=== PATIENT | female | born 1980 ===

== ENCOUNTER 2024-04-19 09:00 | Outpatient (RCR) | payer OTHER, SELFPAY ==
--- NOTE | 2024-01-22 11:58 | OTOPEVAL1 ---
Assessment and note entered by Mark Kuhn, OTR/Rebecca, CHT Evaluation Information Assessment Status Evaluation Diagnosis Bilateral carpal tunnel syndrome ICD-10 Condition Codes (OT) M79.641,M25.531,M25.521 Subjective Information Patient is right handed. Reports symptoms are worse on the right vs. the left. 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 She reports pain with cleaning tasks. She takes her brace off to clean the bathrooms and this is the most painful task. She would like to focus treatment on the right UE at this time due to her level of pain on this side. She presents in a prefabricated wrist immobilizer that she wears during the day. She states she cannot wear it at night because it's too painful. Reported Pain Level Pain Score 5/10 (R) wrist/hand, gets up to 10/10 at times 0/10 (L) wrist/hand Assessment OT Clinical Summary Patient referred to OT with dx of carpal tunnel syndrome. She presents with significant amounts of pain and reduced ROM/flexibility in the wrist and thumb due to pain, stiffness, and weakness. Issued ROM HEP today and began soft tissue work to improve flexibility. She was unable to tolerate nerve glides due to the level of pain and nerve irritation. Continued skilled OT indicated to progress HEP as tolerated, for therapeutic exercise, use of modalities, and manual therapy to facilitate optimal functional use of her right, dominant UE. Plan of Care Interventions Therapeutic Exercise,Manual Therapy,Therapeutic Activities,Hot Pack/Cold Pack,Check Out for Orthotic/Pr,Ultrasound,Paraffin OT Services Indicated Yes Treatment Frequency and 2x/week for 8 visits Duration These treatments will address the objective and functional deficits as defined above. The patient will be advanced safely and appropriately in order for the patient to progress towards his/her prior level of function. Additional exercises will be introduced and as well as a comprehensive home exercise program upon discharge, if needed, ?to ensure carryover of functional gains achieved in the clinic. This treatment plan has been reviewed and agreement upon by the patient.
--- NOTE | 2024-01-22 11:58 | OPREHPOC ---
Outpatient Therapy Plan of Care This is a Multidisciplinary Plan of Care that may contain components documented by all disciplines (PT, OT, and ST.) OT Problem 1 OT Problem #1 Knowledge Deficit OT Goal 1 Goal 1. Patient to be independent with instructed materials. Target Visit 8 OT Problem 2 OT Problem #2 Pain OT Goal 1 Goal 1. Patient to report reduced pain with ROM of the right UE, reporting 3/10 or less with wrist and thumb ROM. Target Visit 8 OT Problem 3 OT Problem #3 Impaired Strength OT Goal 1 Goal 1. Patient to be able to progress to right forearm and wrist strengthening with 2 lb. free weight without pain. 2. Patient to be able to progress to right milled lumber grader/ pinch strengthening with whelan putty without pain. Target Visit 8
--- NOTE | 2024-03-01 08:35 | PCOTNOTE ---
Patient did not show up for scheduled appointment this date. Called patient, who speaks [place], and was unable to understand her reason for missing the appointment. 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 We were able to reschedule the appointment to next Monday.
--- NOTE | 2024-03-08 14:14 | OTOPPROG ---
Assessment and note entered by Mark Kuhn, CONCEPCIÓN/Rebecca, CHT OT Progress Update 03/08/24 Diagnosis Bilateral carpal tunnel syndrome ICD-10 Condition Codes (OT) M79.641,M25.531,M25.521 Subjective Information Patient reports experiencing progress in the right hand since starting therapy. She reports her pain and tingling have reduced. She is no longer having constant tingling, she has some days of no tingling throughout the day. She states she wakes up in the morning with tingling and this subsides when she gets moving. She has 2 weeks off work right now so she has been trying to rest. She wears a wrist brace on the right when she sleeps. she reports after a therapy day she has relief for 2 days, reporting no tingling or pain. Assessment OT Clinical Summary Patient referred to OT with dx of carpal tunnel syndrome. She has participated in 7 OT sessions with the goals of reducing pain and improving functional use of the right UE. She is making progress with reduced pain levels, reduced paresthesia, and improved flexibility. At the start of care she was unable to tolerate median nerve glides and she has progressed to being able to do 10 reps for HEP. She is tolerating more aggressive stretching and some cold storage worker strengthening also. She continues to experience pain and night paresthesia, however. She continues to have functional limitations with right UE use due to the pain. Continued skilled OT indicated indicated to progress HEP as tolerated, for therapeutic exercise, use of modalities, and manual therapy to facilitate optimal functional use of her right, dominant UE. Plan of Care Interventions Therapeutic Exercise,Manual Therapy,Therapeutic Activities,Hot Pack/Cold Pack,Check Out for Orthotic/Pr,Ultrasound,Paraffin OT Services Indicated Yes Treatment Frequency and 2x/week for 8 visits Duration These treatments will address the objective and functional deficits as defined above. The patient will be advanced safely and appropriately in order for the patient to progress towards his/her prior level of function. Additional exercises will be introduced and as well as a comprehensive home exercise program upon discharge, if needed, ?to ensure carryover of functional gains achieved in the clinic. This treatment plan has been reviewed and agreement upon by the patient.
--- NOTE | 2024-03-08 14:14 | OPREHPOC ---
Outpatient Therapy Plan of Care This is a Multidisciplinary Plan of Care that may contain components documented by all disciplines (PT, OT, and ST.) OT Problem 1 OT Problem #1 Knowledge Deficit OT Goal 1 Goal / Goal Update 1. Patient to be independent with instructed materials. ---OT POC UPDATE 03/08/24--- 1. Met, continue as HEP is progressed Target Visit 16 OT Problem 2 OT Problem #2 Pain OT Goal 1 Goal / Goal Update 1. Patient to report reduced pain with ROM of the right UE, reporting 3/10 or less with wrist and thumb ROM. ---OT POC UPDATE 03/08/24--- 1. Progressed, but not met, continue pain goal Target Visit 16 OT Problem 3 OT Problem #3 Impaired Strength OT Goal 1 Goal / Goal Update 1. Patient to be able to progress to right forearm and wrist strengthening with 2 lb. free weight without pain. 2. Patient to be able to progress to right insect control inspector/ pinch strengthening with whelan putty without pain. ---OT POC UPDATE 03/08/24--- 1. Progressing, not met 2. Progressing, not met Target Visit 16
--- NOTE | 2024-04-02 11:56 | OTOPPROG ---
Assessment and note entered by Mark Kuhn, CONCEPCIÓN/Rebecca, CHT Evaluation Information Assessment Status Progress Diagnosis Bilateral carpal tunnel syndrome ICD-10 Condition Codes (OT) M79.641,M25.531,M25.521 Subjective Information Patient reports her right hand is doing better. She is experiencing no pain and no tingling at rest, has increased pain with hand use, especially with work tasks. She reports she wakes with tingling in the right hand in the middle of the night about 1-2 times a week. She reports the majority of her pain is now proximally at the shoulder and upper traps. ROM of the wrist has returned to normal limits. She is no longer having 8/10 pain with wrist ROM. With active wrist extension she experiences 1/10 pain. She continues to have (+) Phalen's. Labor Economist and pinch strengths are below functional limits: (R) road manager 19 lbs. (R) lateral pinch 0 lbs. (R) palmar pinch 0 lbs. (L) road manager 21 lbs. (L) lateral pinch 4 lbs. (L) palmar pinch 0 lbs. Assessment OT Clinical Summary Patient referred to OT with dx of carpal tunnel syndrome. She has participated in 12 OT sessions with the goals of reducing pain and improving functional use of the right UE. She is making progress with reduced pain levels, reduced paresthesia, improved flexibility, and improved activity tolerance. Last reassessment she was unable to complete wrist extension and thumb serial opposition through normal limits due to pain. She is able to move through full ROM with lower amounts of pain, she is experiencing reduced paresthesia during the day, and is functioning with lower levels of pain. She continues to have a positive Phalen's test (positive within 10 seconds). She continues to have intermittent night symptoms. Continued skilled OT is recommended for continued use of modalities, manual therapy, and progressive therapeutic exercise to facilitate optimal functional use of her right, dominant UE. Plan of Care Interventions Therapeutic Exercise,Manual Therapy,Therapeutic Activities,Hot Pack/Cold Pack,Check Out for Orthotic/Pr,Ultrasound
--- NOTE | 2024-04-02 11:57 | OPREHPOC ---
Outpatient Therapy Plan of Care This is a Multidisciplinary Plan of Care that may contain components documented by all disciplines (PT, OT, and ST.) OT Problem 1 OT Problem #1 Knowledge Deficit OT Goal 1 Goal / Goal Update 1. Patient to be independent with instructed materials. ---OT POC UPDATE 03/08/24--- 1. Met, continue as HEP is progressed ---OT POC UPDATE 04/02/24--- 1. Met, continue as HEP is progressed Target Visit 20 OT Problem 2 OT Problem #2 Pain OT Goal 1 Goal / Goal Update 1. Patient to report reduced pain with ROM of the right UE, reporting 3/10 or less with wrist and thumb ROM. ---OT POC UPDATE 03/08/24--- 1. Progressed, but not met, continue pain goal ---OT POC UPDATE 04/02/24--- 1. Met. Upgrade goal to: Patient to report no longer experiencing pain with wrist and thumb ROM. Target Visit 20 OT Problem 3 OT Problem #3 Impaired Strength OT Goal 1 Goal / Goal Update 1. Patient to be able to progress to right forearm and wrist strengthening with 2 lb. free weight without pain. 2. Patient to be able to progress to right sweat band separator/ pinch strengthening with whelan putty without pain. ---OT POC UPDATE 03/08/24--- 1. Progressing, not met 2. Progressing, not met ---OT POC UPDATE 04/02/24--- 1. Progressing, not met 2. Progressing, not met Target Visit 20
== END 2024-04-21 23:59 | disposition home or self-care (01) ==
LOC: ANHOT 09:00
PROVIDERS: PCP Physician Assistant; Visit Provider Physician Assistant
DX: G56.03 Carpal tunnel syndrome, bilateral upper limbs (principal)
CPT/HCPCS: 97018; 97035; 97110; 97140; 97165

== ENCOUNTER 2024-05-10 10:00 | Outpatient (RCR) | payer OTHER, SELFPAY ==
--- NOTE | 2024-05-02 09:38 | PCOTNOTE ---
The treatment documented on this account is a continuation of the treatment documented on visit number [id number]. Please see documentation on both accounts to view progress. The Plan of Care has been transitioned and updated within the new V#. I have addressed and agree with the discipline specific Problems, Interventions, and Goals for the current certification period. Completed interventions, outcomes, and problems have been marked as Inactive to facilitate the copying of the Care plan routine for recurring accounts.
--- NOTE | 2024-05-10 10:31 | OTOPDC ---
Assessment and note entered by Mark Kuhn, CONCEPCIÓN/Rebecca, CHT OT Discharge Summary 05/10/24 Assessment Status Discharge Diagnosis Bilateral carpal tunnel syndrome ICD-10 Condition Codes (OT) M25.521,M79.641,M25.531 Subjective Information Patient reports doing very well the past week, reporting no pain in the shoulder/upper traps area and no pain in the hand. She has been doing some self mobilization on the upper trap, trigger point with a therapeutic cane, and stretching. She feels like she has everything she needs to manage her pain and tightness now. She reports the paresthesia in the hand is reducing, only experiencing it twice this week when waking up in the morning. She reports after she does her exercises it goes away. ROM of the wrist has returned to normal limits. She is no longer having pain with wrist ROM. She continues to have (+) Phalen's. Residence Counselor and pinch strengths have progressed to functional limits (R) commercial teller 48 lbs. (R) lateral pinch 10 lbs. (R) palmar pinch 6 lbs. No pain with commercial teller/pinch assessments this date. Assessment OT Clinical Summary Patient referred to OT with dx of carpal tunnel syndrome. She has participated in 20 OT sessions with the goals of reducing pain and improving functional use of the right UE. She has progressed to having no pain in the last week. She reports no functional limitations in the last week. She has been compliant with all materials. She is experiencing ~2 occasions of paresthesia in the right hand a week and the paresthesia stops when she completes her HEP. She is able to move her right UE through normal ROM without pain. Upper limb tension test for the median nerve is negative . Phalen's test did not show any paresthesia after 30 sec. hold. Reviewed HEP today and patient reports excellent understanding. No further skilled OT indicated at this time. D/C OT with therapy goals met and with patient independent HEP . Plan of Care OT Services Indicated No
== END 2024-05-10 13:00 | disposition home or self-care (01) ==
LOC: ANHOT 10:00
PROVIDERS: PCP Physician Assistant; Visit Provider Physician Assistant
DX: G56.03 Carpal tunnel syndrome, bilateral upper limbs (principal)
CPT/HCPCS: 97018; 97110; 97112